=== PATIENT | male | born 1935 | race Caucasian/White ===

== ENCOUNTER 2016-03-10 07:15 | Outpatient (CLI) | payer MEDICARE, OTHER | END 2016-03-10 07:16 | disposition home or self-care (01) | DX: M35.3 Polymyalgia rheumatica (principal) ==

== ENCOUNTER 2016-06-16 17:13 | Outpatient (CLI) | payer MEDICARE, OTHER | END 2016-06-16 17:14 | disposition home or self-care (01) | DX: I10 Essential (primary) hypertension (principal); E78.5 Hyperlipidemia, unspecified; M35.3 Polymyalgia rheumatica ==

== ENCOUNTER 2016-08-18 10:38 | Outpatient (CLI) | payer MEDICARE, OTHER | END 2016-08-18 10:39 | disposition home or self-care (01) | LOC: LAB.WCP 10:38 | PROVIDERS: ATTEND Family Medicine | DX: M35.3 Polymyalgia rheumatica (principal) | CPT/HCPCS: 36415; 85651; 86140 ==

== ENCOUNTER 2016-09-11 07:20 | Outpatient (CLI) | payer MEDICARE, OTHER | END 2016-09-11 07:21 | disposition home or self-care (01) | LOC: LAB.WCP 07:20 | PROVIDERS: ATTEND Family Medicine | DX: M35.3 Polymyalgia rheumatica (principal) | CPT/HCPCS: 36415; 85651; 86140 ==

== ENCOUNTER 2016-10-12 07:44 | Outpatient (CLI) | payer MEDICARE, OTHER | END 2016-10-12 07:45 | LOC: LAB.WCP 07:44 | PROVIDERS: ATTEND Family Medicine | DX: M35.3 Polymyalgia rheumatica (principal) | CPT/HCPCS: 36415; 85651; 86140 ==

== ENCOUNTER 2016-12-08 13:18 | Outpatient (CLI) | payer MEDICARE, OTHER | END 2016-12-08 13:19 | disposition home or self-care (01) | LOC: SC 13:18 | PROVIDERS: ATTEND Nurse Practitioner Family | DX: G47.33 Obstructive sleep apnea (adult) (pediatric) (principal) | CPT/HCPCS: 99214; G0463; 99212 ==

== ENCOUNTER 2016-12-14 07:25 | Outpatient (CLI) | payer MEDICARE, OTHER | END 2016-12-14 07:26 | LOC: LAB.WCP 07:25 | PROVIDERS: ATTEND Family Medicine | DX: M35.3 Polymyalgia rheumatica (principal) | CPT/HCPCS: 36415; 85651; 86140 ==

== ENCOUNTER 2017-09-22 08:00 | Outpatient (CLI) | payer MEDICARE, OTHER ==
[2017-09-22 12:44] LABS: BILIRUBIN,URINE NEGATIVE (NEGATIVE); GLUCOSE, URINE (UA) NEGATIVE (NEGATIVE); KETONES,URINE (UA) NEGATIVE (NEGATIVE); LEUKOCYTE ESTERASE, URINE NEGATIVE (NEGATIVE); NITRITE,URINE NEGATIVE (NEGATIVE); OCCULT BLOOD,URINE NEGATIVE (NEGATIVE); PROTEIN,URINE NEGATIVE (NEGATIVE); UROBILINOGEN,URINE 0.2 (NORMAL) E.U./dL (NORMAL)
[2017-09-22 13:09] LABS: ALBUMIN 3.8 g/dL (3.2-5.5); ALBUMIN/GLOBULIN RATIO 1.3 (1.0-2.2); ALKALINE PHOSPHATASE 33 IU/L (42-121); ALT ALANINE AMINOTRANSFERASE 19 IU/L (10-60); AST ASPARTATE AMINOTRANSFERASE 24 IU/L (10-42); BILIRUBIN,TOTAL 0.9 mg/dL (0.2-1.0); BUN - BLOOD UREA NITROGEN 26 mg/dL (6-20); CALCIUM 9.4 mg/dL (8.5-10.3); CARBON DIOXIDE - CO2 27 mmol/L (21-32); CHLORIDE 103 mmol/L (101-111); CHOL/HDL RATIO 6.2 (<5.0); CHOLESTEROL 206 mg/dL; CREATININE 1.6 mg/dL (0.6-1.2); GFR - MDRD 41 (>89); GLUCOSE 96 mg/dL (70-100); HDL CHOLESTEROL 33 mg/dL; LDL CHOLESTEROL,CALCULATED 100 mg/dL; SODIUM 137 mmol/L (135-145); TOTAL PROTEIN 6.7 g/dL (6.7-8.2); VLDL CHOLESTEROL 73 mg/dL
[2017-09-22 13:10] LABS: BACTERIA,URINE Few /HPF (None Seen); CLARITY,URINE CLEAR (CLEAR); RBC,URINE 0-5 /HPF (0-5); SQUAMOUS EPITHELIAL CELL,UR MOD Squamous (<= Few)
[2017-09-22 13:12] LABS: CRP - C-REACTIVE PROTEIN < 1.0 mg/dL (0-1.0); PSA FREE 0.09 ng/mL (0.16-2.81)
[2017-09-22 13:13] LABS: PSA TOTAL 0.549 ng/mL (0.000-2.000)
== END 2017-09-22 08:01 ==
LOC: LAB.WCP 08:00
PROVIDERS: ATTEND Family Medicine
DX: N18.9 Chronic kidney disease, unspecified (principal); M35.3 Polymyalgia rheumatica; I10 Essential (primary) hypertension; E78.5 Hyperlipidemia, unspecified; R97.20 Elevated prostate specific antigen [PSA]
CPT/HCPCS: 36415; 80053; 80061; 81001; 83721; 84154; 85651; 86140

== ENCOUNTER 2017-12-13 13:38 | Outpatient (CLI) | payer MEDICARE, OTHER | END 2017-12-13 13:39 | disposition home or self-care (01) | LOC: SC 13:38 | PROVIDERS: ATTEND Nurse Practitioner Family | DX: G47.33 Obstructive sleep apnea (adult) (pediatric) (principal) | CPT/HCPCS: 99214; G0463; 99212 ==

== ENCOUNTER 2017-12-16 08:38 | Outpatient (CLI) | payer MEDICARE, OTHER ==
--- NOTE | 2017-12-16 10:03 | XRAY Report ---
Reason: SPONDYLOSIS W/O MYELOPATHY OR RADICULOPATHY Procedure Date: 12/16/2017 Accession Number: [id number] / [id number] Procedure: XR - Lumbar Spine Complete CPT Code: FULL RESULT: EXAM: LUMBOSACRAL SPINE RADIOGRAPHY EXAM DATE: 12/16/2017 08:55 AM. CLINICAL HISTORY: SPONDYLOSIS W/O MYELOPATHY OR RADICULOPATHY. COMPARISONS: None. TECHNIQUE: 5 views. FINDINGS: Alignment: There is grade 1 anterolisthesis of L5 upon S1 Bones: Five [id number] lumbar vertebral bodies are present. No fractures or bone lesions. No evidence of pars defects. Disks: There is mild narrowing of the L3-L4 disk space. There is moderate narrowing of the L4-L5 and L5-S1 disk spaces. There are moderate anterior osteophytes. Facets: Mild degenerative changes. Sacroiliac Joints: Unremarkable. Soft Tissues: Vascular calcifications are noted. The visualized bowel gas pattern is normal. IMPRESSION: Moderate lumbar spondylosis. Grade 1 anterolisthesis of L5 upon S1. RADIA
== END 2017-12-16 08:39 | disposition home or self-care (01) ==
LOC: DI 08:38
PROVIDERS: ATTEND Physical Medicine & Rehabilitation
DX: M47.816 Spondylosis without myelopathy or radiculopathy, lumbar region (principal); M47.817 Spondylosis without myelopathy or radiculopathy, lumbosacral region; M43.17 Spondylolisthesis, lumbosacral region
CPT/HCPCS: 72110

== ENCOUNTER 2018-08-15 07:50 | Outpatient (CLI) | payer MEDICARE, OTHER ==
[2018-08-15 12:11] LABS: BASOPHILS # (AUTO) 0.1 10^3/uL (0.0-0.1); BASOPHILS % (AUTO) 0.7 %; EOSINOPHILS # (AUTO) 0.2 10^3/uL (0.0-0.7); HGB - HEMOGLOBIN 12.8 g/dL (14.0-18.0); LYMPHOCYTES # (AUTO) 1.3 10^3/uL (1.5-3.5); LYMPHOCYTES % (AUTO) 14.5 %; MEAN CORPUSCULAR HEMOGLOBIN 28.5 pg (27.0-31.0); MEAN CORPUSCULAR HGB CONC 31.9 g/dL (32.0-36.0); MEAN CORPUSCULAR VOLUME 89.3 fL (80.0-94.0); MEAN PLATELET VOLUME 10.6 fL (7.4-11.4); MONOCYTES # (AUTO) 0.8 10^3/uL (0.0-1.0); MONOCYTES % (AUTO) 8.7 %; NEUTROPHILS # (AUTO) 6.6 10^3/uL (1.5-6.6); NEUTROPHILS % (AUTO) 73.8 %; PLT - PLATELET COUNT 234 10^3/uL (130-450); RED BLOOD COUNT 4.49 10^6/uL (4.70-6.10); RED CELL DISTRIBUTION WIDTH 13.8 % (12.0-15.0)
[2018-08-15 13:00] LABS: ALBUMIN 4.1 g/dL (3.2-5.5); ALBUMIN/GLOBULIN RATIO 1.5 (1.0-2.2); ALKALINE PHOSPHATASE 36 IU/L (42-121); ALT ALANINE AMINOTRANSFERASE 19 IU/L (10-60); AST ASPARTATE AMINOTRANSFERASE 23 IU/L (10-42); BILIRUBIN,TOTAL 0.8 mg/dL (0.2-1.0); BUN - BLOOD UREA NITROGEN 23 mg/dL (6-20); CALCIUM 9.6 mg/dL (8.5-10.3); CARBON DIOXIDE - CO2 24 mmol/L (21-32); CHLORIDE 104 mmol/L (101-111); CHOL/HDL RATIO 5.6 (<5.0); CHOLESTEROL 186 mg/dL; CREATININE 1.3 mg/dL (0.6-1.2); GFR - MDRD 52 (>89); GLUCOSE 104 mg/dL (70-100); HDL CHOLESTEROL 33 mg/dL; LDL CHOLESTEROL,CALCULATED 80 mg/dL; LDL/HDL RATIO 2.4 (<3.6); SODIUM 138 mmol/L (135-145); TOTAL PROTEIN 6.9 g/dL (6.7-8.2); VLDL CHOLESTEROL 73 mg/dL
== END 2018-08-15 07:51 | disposition home or self-care (01) ==
LOC: LAB.WCP 07:50
PROVIDERS: ATTEND Family Medicine
DX: I10 Essential (primary) hypertension (principal); E78.5 Hyperlipidemia, unspecified
CPT/HCPCS: 36415; 80053; 80061; 83721; 85025

== ENCOUNTER 2018-12-21 13:43 | Outpatient (CLI) | payer MEDICARE, OTHER ==
[2018-12-21 15:02] VITALS: BP 170/70
--- NOTE | 2018-12-21 15:02 | SLEEP CARE CONSULTATION ---
Information from patient questionnaire entered by Sharlene Saenz. I have reviewed and concur with the information entered by Sharlene Saenz. This document represents the service I personally performed and the decisions made by me, Carmen Aguirre, RN, MSN, MARKER [employer]KER. History of Present Illness Previous diagnosis: Moderate, Obstructive Sleep Apnea-Hypopnea Syndrome AHI: 20.7 Reason for CPAP/BiPAP follow up: annual Equipment type: CPAP Equipment obtained from: [employer] Mask style: Nasal Mask brand: Respironics Backup mask available: No (keep current mask when replaced for spare) Last cushion change: 2 weeks HPI additional information: Mask refitting was completed shortly after last annual visit but mask was no better and kept him awake so he returned to old mask. He is no longer taking off in sleep and no longer frustrated with the process. CPAP Compliance Data - Data Reviewed with Patient Average duration of nightly device use: 6.0 Compliance rate %: 87.8 (180 days) Current pressure setting (cmH2O): 10 Humidity settin Heated hose settin Average residual AHI: 1.8 Average large leak: 8 min 54 sec Subjective Missed days of use due to: reports: illness (cold) Patient concerns: reports: air blowing in eyes (1 time a week), mask leak noise (a few times a week), dry mouth, nose, throat (every day - moderate - nose and mouth ). denies: aerophagia, mask discomfort, condensation in mask/hose, nasal congestion, epistaxis Observed to snore while using device: Yes (mild) Current pressure setting perceived as: comfortable On therapy, patient: reports: sleeping better, awakening more refreshed, being more awake and alert during the day, more rested overall. denies: drowsiness while driving Initial [place] Sleepiness Scale score: 10 Current [place] Sleepiness Scale score: 9 Allergies and Home Medications Known drug allergies: Yes (sulfa, pencillin, doxycyline, ibuprogen etc as noted) Home medication list reviewed: Yes Allergy and home medication list: Cranberry 125mg tab take 4200mg daily Multivitamin Tab one daily Glucosamine Chondroitin Complex 1500mg cap one daily Tums EX 750mg chew 3-4 daily Tylenol Extra Strength 500mg tab 4-6 prn pain Tamsulosin HCL 0.4mg cap two daily Finasteride 5mg tab one daily at bedtime Aspirin EC 81mg tab one daily Prednisone 1 -5 mg tab one daily Lipitor (Atorvastatin Calcium) 10mg tab one daily at bedtime Plavix (Clopidogrel Bisulfate) 75mg tab one daily Losartan Potassium 50mg tab one daily Vitamin D3 2000IU tab one daily Vitamin C 1800IU tab one daily Calcium 600-Vit D3 600IU tab one daily Potassium 99mg tab one daily Stool softner 100mg cap one daily Benadryl 25mg tab one daily as needed Review of Systems Review of systems same as previous: Yes Physical Exam Blood Pressure: 170/70 (talking about spouses recent fall - usually 130-140/ 60) Heart Rate: 57 (repeat blood pressure is 160/68) O2 Saturation: 97 Height: 5 ft 9.5 in Weight: 174 lb Body Mass Index: 25.3 BMI Classification: Overweight Impression and Plan 1. Obstructive Sleep Apnea-Hypopnea Syndrome, moderate, with good treatment compliance and good apnea control. On CPAP therapy, the patient has better sleep quality and is more rested overall. His oral dryness is not controlled with maximum setting of his current CPAP. Thus since his CPAP is over 5 years old and has a better humidity system, I will update his CPAP. At that time, he can also update his mask headgear and mask hose attachment. I will also increase his CPAP pressure to [id number] to resolve snoring. He is to contact me if the pressure change is uncomfortable. Patient's apnea severity and rationale for treatment to reduce apnea, improve sleep quality and reduce cardiovascular and cerebrovascular events was reviewed. I also reviewed the benefit of consistent device use of CPAP for hypertension. 2. Elevated Blood Pressure, today at beginning and end of visit. It was initially thought to be elevated as he was talking about his spouses recent fall and progress. Patient monitors at home randomly and generally runs 130/140 / 60. He is advised to check again at home and contact his PCP if still elevated and agreed with plan. Review of his medications show he is still on losartan but his metoprolol was stopped for unknown reason. He is aware of health risks of too high of blood pressure. * Update CPAP * Change CPAP pressure to 11 cmH2O * Update mask hardware and hose attachment. * Notify me if snoring with mask or feeling that the pressure is too much or too little * Contact PCP if blood pressure still elevated. * Return for follow up after new device , or sooner if concerns arise * I called patient at end of day 1814 to check his blood pressure reading. He had not taken it yet. He is advised to take after resting 5-10 minutes. I advised him to seek urgent evaluation if systolic 180 or above or diastolic 100 or above and again reviewed risks heart attack and stroke with untreated high blood pressure. He agreed with plan. I spent 100% of this 35 minute visit face to face with the patient with greater than 50% of this was spent time counseling the patient and coordination of care.
== END 2018-12-21 13:44 | disposition home or self-care (01) ==
LOC: SC 13:43
PROVIDERS: ATTEND Nurse Practitioner Family
DX: G47.33 Obstructive sleep apnea (adult) (pediatric) (principal); R03.0 Elevated blood-pressure reading, without diagnosis of hypertension
CPT/HCPCS: 99212; 99214

== ENCOUNTER 2019-03-20 08:50 | Outpatient (CLI) | payer MEDICARE, OTHER ==
[2019-03-20 12:09] LABS: BASOPHILS # (AUTO) 0.1 10^3/uL (0.0-0.1); EOSINOPHILS # (AUTO) 0.1 10^3/uL (0.0-0.7); EOSINOPHILS % (AUTO) 1.5 %; HGB - HEMOGLOBIN 12.7 g/dL (14.0-18.0); LYMPHOCYTES # (AUTO) 1.2 10^3/uL (1.5-3.5); LYMPHOCYTES % (AUTO) 14.8 %; MEAN CORPUSCULAR HEMOGLOBIN 27.8 pg (27.0-31.0); MEAN CORPUSCULAR HGB CONC 31.1 g/dL (32.0-36.0); MEAN CORPUSCULAR VOLUME 89.5 fL (80.0-94.0); MEAN PLATELET VOLUME 11.1 fL (7.4-11.4); MONOCYTES # (AUTO) 0.5 10^3/uL (0.0-1.0); MONOCYTES % (AUTO) 6.9 %; NEUTROPHILS # (AUTO) 5.9 10^3/uL (1.5-6.6); NEUTROPHILS % (AUTO) 75.4 %; PLT - PLATELET COUNT 224 10^3/uL (130-450); RED BLOOD COUNT 4.57 10^6/uL (4.70-6.10); RED CELL DISTRIBUTION WIDTH 13.8 % (12.0-15.0); WHITE BLOOD COUNT 7.8 x10^3/uL (4.8-10.8)
[2019-03-20 12:32] LABS: PSA FREE 0.12 ng/mL (0.16-2.81)
[2019-03-20 12:33] LABS: PSA TOTAL 0.73 ng/mL (0.000-2.000)
[2019-03-20 13:06] LABS: ALBUMIN 3.9 g/dL (3.2-5.5); ALBUMIN/GLOBULIN RATIO 1.5 (1.0-2.2); ALKALINE PHOSPHATASE 32 IU/L (42-121); ALT ALANINE AMINOTRANSFERASE 19 IU/L (10-60); AST ASPARTATE AMINOTRANSFERASE 24 IU/L (10-42); BILIRUBIN,TOTAL 0.5 mg/dL (0.2-1.0); BUN - BLOOD UREA NITROGEN 23 mg/dL (6-20); CALCIUM 9.3 mg/dL (8.5-10.3); CARBON DIOXIDE - CO2 28 mmol/L (21-32); CHLORIDE 103 mmol/L (101-111); CHOL/HDL RATIO 5.7 (<5.0); CHOLESTEROL 195 mg/dL; CREATININE 1.4 mg/dL (0.6-1.2); GFR - MDRD 48 (>89); GLUCOSE 101 mg/dL (70-100); HDL CHOLESTEROL 34 mg/dL; SODIUM 139 mmol/L (135-145); TOTAL PROTEIN 6.5 g/dL (6.7-8.2)
[2019-03-20 13:33] LABS: LDL CHOLESTEROL,DIRECT 99 mg/dL; LDLD/HDL RATIO 2.9 (<3.6)
== END 2019-03-20 23:59 | disposition home or self-care (01) ==
LOC: LAB.WCP 08:50
PROVIDERS: ATTEND Nurse Practitioner Family
DX: I10 Essential (primary) hypertension (principal); R97.20 Elevated prostate specific antigen [PSA]; E78.5 Hyperlipidemia, unspecified; Z13.29 Encounter for screening for other suspected endocrine disorder
CPT/HCPCS: 36415; 80053; 80061; 83721; 84153; 84154; 84443; 85025

== ENCOUNTER 2019-04-06 12:48 | Outpatient (CLI) | payer MEDICARE, OTHER ==
--- NOTE | 2019-04-06 13:43 | SLEEP CARE CONSULTATION ---
Information from patient questionnaire entered by Sharlene Saenz. I have reviewed and concur with the information entered by Sharlene Saenz. This document represents the service I personally performed and the decisions made by me, Carmen Aguirre, RN, MSN, HOUSE WRECKER. History of Present Illness Previous diagnosis: Moderate, Obstructive Sleep Apnea-Hypopnea Syndrome AHI: 20.7 Reason for follow up: first compliance after device update Equipment type: CPAP Equipment obtained from: [employer] Mask style: Nasal (Air Fit N20) Mask brand: Resmed Backup mask available: Yes Last cushion change: no new cushions CPAP Compliance Data - Data Reviewed with Patient Average duration of nightly device use: 2.7 Compliance rate %: 6.7 (14.8 for 81 days) Current pressure setting (cmH2O): 11 Humidity settin Heated hose settin Average residual AHI: 8.1 Average large leak: 44 sec Subjective Patient concerns: reports: mask discomfort (does not feel like it fits correctly - ), air blowing in eyes (he has to adjust mask at least 3- 4 times a night ), mask leak noise, nasal congestion (mild ), dry mouth, nose, throat. denies: aerophagia, condensation in mask/hose, epistaxis Observed to snore while using device: Yes Current pressure setting perceived as: too high (initially the pressure seems too high, does not use ramp, but also wake to too high of pressure nightly) On therapy, patient: reports: other (currently not rested with use as waking to adjust mask and feels more tired during the dya. ) Initial [place] Sleepiness Scale score: 10 Current [place] Sleepiness Scale score: 8 Allergies and Home Medications Known drug allergies: Yes Home medication list reviewed: Yes (no changes) Review of Systems Review of systems same as previous: No Physical Exam Blood Pressure: 140/70 Heart Rate: 53 O2 Saturation: 98 Height: 5 ft 9.5 in Weight: 176 lb Weight change since last visit: gained 2 pounds Body Mass Index: 25.6 BMI Classification: Overweight Impression and Plan 1. Obstructive Sleep Apnea-Hypopnea Syndrome, moderate, with poor treatment compliance and elevated residual apnea control. On CPAP therapy, the patient has better sleep quality and is more rested overall. His compliance data seems incorrect due to his large mask leak. It is leaking so much, the machine is thinking the mask is off his face. He reports that he is using CPAP about 6 hours a night as shown on compliance usage but the black wynn showing mask off face make it appear he is using CPAP less time. HIs current mask is waking him 3-4 times a night. His spouse he is opening his mouth during supine sleep and he is waking with dry mouth somewhat dry. Since he is having so much difficulty with mask, I showed him some samples both full face ( due to oral venting in supine position) and nasal styles. After some discussion, he chose the nasal Dreamwear mask and thought it felt more comfortable than current mask. He is also feeling that the pressure is too high. It was increased at last visit due to snore. Thus I will reduce the autoCPAP pressure ot [id number]. He is to contact me if the pressure change does not improve comfort of use. It is hoped a better fitting mask and lower pressure will improve his comfort of use and oral dryness as well as improve complaince data with less mask leaks. I also showed him how to adjust the humidity for his oral dryness on sample device. Printed instructions given. Patient's apnea severity and rationale for treatment to reduce apnea, improve sleep quality and reduce cardiovascular and cerebrovascular events was reviewed. I also reviewed the benefit of consistent device use of his CPAP use to his hypertension. * * Change CPAP pressure to 8-10 cmH2O * Try Dreamwear nasal mask. * Adjust humidity. * Notify me if snoring with mask or feeling that the pressure is too much or too little * Attempt to lose weight * Call this office if any problems using CPAP * Return for follow up in 1-2 months , or sooner if concerns arise Time Spent with Patient (minutes): 40 I spent 100% of this visit face to face with the patient with greater than 50% of this was spent time counseling the patient and coordination of care.
[2019-04-06 13:44] VITALS: BP 140/70
== END 2019-04-06 12:49 | disposition home or self-care (01) ==
LOC: SC 12:48
PROVIDERS: ATTEND Nurse Practitioner Family
DX: G47.33 Obstructive sleep apnea (adult) (pediatric) (principal); E66.3 Overweight; Z68.25 Body mass index [BMI] 25.0-25.9, adult
CPT/HCPCS: 99215; G0463; 99212

== ENCOUNTER 2019-08-03 08:52 | Outpatient (CLI) | payer MEDICARE, OTHER ==
[2019-08-03 09:36] VITALS: BP 134/70
--- NOTE | 2019-08-03 09:36 | SLEEP CARE CONSULTATION ---
Information from patient questionnaire entered by Sharlene Saenz. I have reviewed and concur with the information entered by Sharlene Saenz. This document represents the service I personally performed and the decisions made by me, Carmen Aguirre, RN, MSN, DIAMOND SIZER AND GRADER. History of Present Illness Service Date and Time: 08/03/2019 0852 Previous diagnosis: Moderate, Obstructive Sleep Apnea-Hypopnea Syndrome AHI: 20.7 (in 2013) Reason for follow up: other (6 week) Equipment type: CPAP Equipment obtained from: [employer] Mask style: Nasal Mask brand: Resmed Backup mask available: No (other styles ) Last cushion change: at last appointment - sample given Prior sleep studies: Yes Year and Where: 2013 - [facility] Type of Sleep Study: Polysomnography HPI additional information: He tried a new style of mask. He likes the new style Dreamwear medium cushion. He finds it leaking less and works better. The lower pressure has allowed him to use CPAP with all sleep and reduce residual AHI. CPAP Compliance Data - Data Reviewed with Patient Average duration of nightly device use: 5.95 Compliance rate %: 93.3 Current pressure setting (cmH2O): 8-10 Humidity settin Heated hose settin Average residual AHI: 5.3 Average large leak: 3 hr 49 min 21 sec Subjective Missed days of use due to: reports: other (sleeping less due to spouse restless legs in sleep. but usual needs is 6 - 6.6 hours. ) Patient concerns: reports: air blowing in eyes (much less - no eye irritation ), mask leak noise (wakes to mask leaks and ), nasal congestion (chronic intermittent - not interferriing with CPAP. ), dry mouth, nose, throat (mild every night ), other (taking nap for about 45 minutes without CPAP). denies: aerophagia, mask discomfort, condensation in mask/hose, epistaxis Observed to snore while using device: Yes (rare and reduced mask adjustment or mouth open) Current pressure setting perceived as: comfortable On therapy, patient: reports: sleeping better, awakening more refreshed, being more awake and alert during the day, more rested overall. denies: drowsiness while driving Initial [place] Sleepiness Scale score: 10 (in 2012) Current [place] Sleepiness Scale score: 9 Allergies and Home Medications Home medication list reviewed: No (no changes stated) Review of Systems Review of systems same as previous: Yes Physical Exam Blood Pressure: 134/70 Cuff size: long Heart Rate: 51 O2 Saturation: 97 Height: 5 ft 9.5 in Weight: 173 lb 3.2 oz Body Mass Index: 25.2 BMI Classification: Overweight Impression and Plan 1. Obstructive Sleep Apnea-Hypopnea Syndrome, moderate, with good treatment compliance and good apnea control. On CPAP therapy, the patient has better sleep quality and is more rested overall. Patients compliance increased from 6.7% to 93.3%. He feels this is due to more comfortable pressure and better mask fit. In addition the lower pressure reduced residual AHI from 8.1 to 5.3. Thus I will write mask specific order. For oral dryness, his humidity is at lowest setting of 1 and heated hose at 2. So I will have my staff instruct how to increase humidity and give instruction sheet. The higher humidity will also reduce nasal congestion. He can use saline nasal spray prior to CPAP to clear nose of secretions and wash off allergens. He sees Dr Wilson regularly. Oral dryness can increase dental caries. Thus he is advised of oral dryness products and to check with his dentist preference of products. Mask leaks can be reduced with changing mask cushion more often in addition to his mask adjustment. If continued mask leaks, he is to contact [facility] from [facility] for further adjustment. I will also order a chinstrap fitting. Patient's apnea severity and rationale for treatment to reduce apnea, improve sleep quality and reduce cardiovascular and cerebrovascular events was reviewed. Thus he is advised to use CPAP with his naps and he agreed with plan. I also reviewed the benefit of consistent device use of CPAP for hypertension. * Continue auto CPAP pressure at 8-10 cmH2O * Mask specific RX * Contact [facility] if continued mask leaks * Chinstrap fitting * Adjust humidity * Notify me if snoring with mask or feeling that the pressure is too much or too little * Attempt to lose weight * Call this office if any problems using CPAP * Return for follow up in 1 year , or sooner if concerns arise Visit Type: In Office Time Spent with Patient (minutes): 33 Provider Statement: I spent 100% of the Face to Face Visit with the patient with greater than 50% spent counseling the patient and coordination of care.
== END 2019-08-03 08:53 | disposition home or self-care (01) ==
LOC: SC 08:52
PROVIDERS: ATTEND Nurse Practitioner Family
DX: G47.33 Obstructive sleep apnea (adult) (pediatric) (principal); E66.3 Overweight; Z68.25 Body mass index [BMI] 25.0-25.9, adult
CPT/HCPCS: 99214; G0463; 99212

== ENCOUNTER 2019-08-22 10:33 | Outpatient (CLI) | payer MEDICARE, OTHER ==
--- NOTE | 2019-08-22 11:56 | CT Report ---
PROCEDURE: Sinuses INDICATIONS: OTHER CHRONIC SINUSITIS TECHNIQUE: Noncontrast 3.0 mm axial images acquired from the frontal sinuses to the mid-sella, with coronal and sagittal reformats. For radiation dose reduction, the following was used: automated exposure control , adjustment of mA and/or kV according to patient size. COMPARISON: None. FINDINGS: Image quality: Excellent. Maxillary Sinuses: There is severe mucoperiosteal thickening involving the bilateral maxillary sinuse s. Moderate mucosal thickening within the bilateral maxillary sinuses. Ethmoid Air Cells: No bony remodeling or destruction. Sinuses are clear. Sphenoid Sinuses: No bony remodeling or destruction. Moderate left sphenoid sinus mucosal thickening . Frontal Sinuses: No bony remodeling or destruction. Sinuses are clear. Ostiomeatal Complexes: There is bilateral antrectomy. Bilateral antrectomies middle turbinates have b een resected. Are partially opacified. No José cells. Miscellaneous: Visualized intra-orbital contents are normal. No larry bullosa. No nasal septal de viation. IMPRESSION: 1. Postsurgical sequelae. 2. 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 3. Partial opacification of the bilateral antrectomies. Reviewed by: Ting Garcia MD on 08/22/2019 11:54 AM PDT Approved by: Ting Garcia MD on 08/22/2019 11:54 AM PDT Station ID: [id number]
== END 2019-08-22 10:34 | disposition home or self-care (01) ==
LOC: DI 10:33
PROVIDERS: ATTEND Otolaryngology
DX: J34.9 Unspecified disorder of nose and nasal sinuses (principal); R43.0 Anosmia; Z98.890 Other specified postprocedural states
CPT/HCPCS: 70486

== ENCOUNTER 2019-09-20 14:36 | Outpatient (CLI) | payer MEDICARE, OTHER ==
[2019-09-20] MEDS ORDERED: IOVERSOL 320 100 ML VIAL IVP ONE ×2 (14:47→15:12)
--- NOTE | 2019-09-20 15:37 | CT Report ---
PROCEDURE: SOFT TISSUE NECK W INDICATIONS: NECK MASS CONTRAST: IV CONTRAST: Optiray 320 ml: 80 PO CONTRAST: *NO PO CONTRAST TECHNIQUE: After the administration of intravenous contrast, 3.0 mm axial sections acquired from the sella to th e aortic arch. Additional oblique axial 3.0 mm sections acquired through the pharynx. 3 mm thick co bryan reformats were generated. For radiation dose reduction, the following was used: automated exp osure control, adjustment of mA and/or kV according to patient size. COMPARISON: None. FINDINGS: Image quality: Excellent. Lymph nodes: No enlarged lymph nodes seen throughout the neck. Vessels: Visualized vasculature appears patent. Neck spaces: The oropharynx, nasopharynx, and pharynx demonstrate no mucosal lesions. The vocal cor ds, false vocal cords, pyriform sinuses, epiglottis, vallecula, and tongue base all appear normal. E xtramucosal spaces appear unremarkable. ACT surface marker was placed above the medial right clavicu lar head area attached to the skin surface to denote the area of current clinical concern. There is a symmetric degenerative change at the medial clavicular heads bilaterally, greater on the right than t he left, but no underlying cutaneous or subcutaneous mass or adenopathy is associated. Glands: The parotid and submandibular glands appear normal. The thyroid is normal in size. Miscellaneous: Visualized brain and orbits appear normal. Lung apices appear clear. Superficial so ft tissues appear normal. Bones: No suspicious bony lesions. Visualized sinuses and mastoids appear unremarkable. IMPRESSION: No mass lesion seen in the area of current clinical concern demarcated by a CT surface marker placed with patient assistance over the area of current concern. 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 This may explai n palpable asymmetry in that area. Reviewed by: Wilman Schultz MD on 09/20/2019 3:35 PM PDT Approved by: Wilman Schultz MD on 09/20/2019 3:35 PM PDT Station ID: [id number]
== END 2019-09-20 14:37 | disposition home or self-care (01) ==
LOC: DI 14:36
PROVIDERS: ATTEND Family Medicine
DX: M19.011 Primary osteoarthritis, right shoulder (principal)
CPT/HCPCS: 70491; Q9967

== ENCOUNTER 2020-07-03 09:38 | Outpatient (CLI) | payer MEDICARE, OTHER ==
--- NOTE | 2020-07-03 10:34 | XRAY Report ---
PROCEDURE: Humerus LT INDICATIONS: INJURY OF MUSCLE, FASCIA AND TENDON OF BICEPS, L ARM TECHNIQUE: 2 views of the humerus were acquired. COMPARISON: None. FINDINGS: Bones: No fractures or dislocations. No suspicious bony lesions. Soft tissues: No suspicious soft tissue calcifications. IMPRESSION: No fracture. Further evaluation of the soft tissues could be assessed with MRI as clinically necessar y. Reviewed by: Freddy Alvarado MD on 07/03/2020 10:33 AM PDT Approved by: Freddy Alvarado MD on 07/03/2020 10:33 AM PDT Station ID: [id number]
== END 2020-07-03 23:59 | disposition home or self-care (01) ==
LOC: DI.N 09:38
PROVIDERS: ATTEND Nurse Practitioner
DX: S46.202A Unspecified injury of muscle, fascia and tendon of other parts of biceps, left arm, initial encounter (principal)

== ENCOUNTER 2020-07-30 08:32 | Outpatient (CLI) | payer MEDICARE, OTHER ==
--- NOTE | 2020-07-30 09:03 | SLEEP CARE CONSULTATION ---
Information from patient questionnaire entered by Sharlene Saenz. I have reviewed and concur with the information entered by Sharlene Saenz. This document represents the service I personally performed and the decisions made by , Hailey oBb ARNP. History of Present Illness Service Date and Time: 07/30/2020 0832 Previous diagnosis: Moderate, Obstructive Sleep Apnea-Hypopnea Syndrome AHI: 20.7 (in 2012) Reason for follow up: annual (last seen 07/2019) Equipment type: CPAP Equipment obtained from: [employer] (getting supplies as needed) Mask style: Nasal (cushion) Mask brand: Respironics Backup mask available: Yes (old mask) Last cushion change: last week Prior sleep studies: Yes Year and Where: 2013 - [facility] HPI additional information: CLEO SHARP was diagnosed to have moderate, AHI 20.7, obstructive sleep apnea-hypopnea syndrome and returned today for CPAP therapy annual follow-up. CPAP Compliance Data - Data Reviewed with Patient Average duration of nightly device use: 4 hr 25 min Compliance rate %: 60.6 (180 days) Current pressure setting (cmH2O): 8-10 Humidity settin Heated hose settin Average residual AHI: 5.5 Central apnea: 0.0 Obstructive apnea: 0.3 Average large leak: 2 hr 55 min Subjective Missed days of use due to: reports: family emergency ( in hospital in January), other (he is getting up earlier which shortens his use ) Patient concerns: reports: mask discomfort (adjusts), air blowing in eyes, mask leak noise (can wake him up). denies: aerophagia, condensation in mask/hose, nasal congestion, dry mouth, nose, throat, epistaxis, other Observed to snore while using device: No Current pressure setting perceived as: comfortable On therapy, patient: reports: sleeping better, awakening more refreshed, being more awake and alert during the day, more rested overall. denies: drowsiness while driving Initial [place] Sleepiness Scale score: 10 (in 2012) Current [place] Sleepiness Scale score: 7 Allergies and Home Medications Home medication list reviewed: Yes (no new meds) Review of Systems Review of systems same as previous: No (ruptured left upper arm tendon) Physical Exam Heart Rate: 58 O2 Saturation: 95 Height: 5 ft 9.5 in Weight: 172 lb Body Mass Index: 25.0 BMI Classification: Overweight Impression and Plan 1. Obstructive Sleep Apnea-Hypopnea Syndrome, moderate, with fair treatment compliance and fair apnea control with minimally elevated AHI. On CPAP therapy, the patient has better sleep quality and is more rested overall. Patient has significant improvement of his sleep apnea. He is very satisfied with his CPAP therapy. He has missed some days of use back in January because his was in the hospital. Since May he has altered how he is been sleeping and has been getting up earlier so at the time has reduced a little. He states he will continue to use his CPAP long-term. He has also had some issues with mask leakage and air blowing in his eyes. He just adjust his mask to reduce this goes back to sleep. I advised him to make sure he uses it every night for at least 4 to 6 hours and he voiced understanding. Patient's apnea severity and rationale for treatment to reduce apnea, improve sleep quality and reduce cardiovascular and cerebrovascular events was reviewed. I also reviewed the benefit of consistent device use of CPAP for hypertension. * Continue auto CPAP pressure at 8-10 cmH2O * Notify me if snoring with mask or feeling that the pressure is too much or too little * Attempt to lose weight * Call this office if any problems using CPAP * Return for follow up in 1 year, or sooner if concerns arise Counseling Topics: Spare mask, Weight loss health impact Visit Type: In Office Time Spent with Patient (minutes): 21 Provider Statement: I spent 100% of the Face to Face Visit with the patient with greater than 50% spent counseling the patient and coordination of care.
== END 2020-07-30 08:33 | disposition home or self-care (01) ==
LOC: SC 08:32
PROVIDERS: ATTEND Nurse Practitioner Family
DX: G47.33 Obstructive sleep apnea (adult) (pediatric) (principal); E66.3 Overweight; Z68.25 Body mass index [BMI] 25.0-25.9, adult
CPT/HCPCS: 99213; G0463; 99212

== ENCOUNTER 2020-08-12 08:00 | Outpatient (CLI) | payer MEDICARE, OTHER ==
[2020-08-12 11:52] LABS: BASOPHILS # (AUTO) 0.1 10^3/uL (0.0-0.1); BASOPHILS % (AUTO) 0.5 %; EOSINOPHILS # (AUTO) 0.2 10^3/uL (0.0-0.7); HCT - HEMATOCRIT 40.7 % (42.0-52.0); HGB - HEMOGLOBIN 13.2 g/dL (14.0-18.0); LYMPHOCYTES # (AUTO) 1.3 10^3/uL (1.5-3.5); LYMPHOCYTES % (AUTO) 13.7 %; MEAN CORPUSCULAR HEMOGLOBIN 28.8 pg (27.0-31.0); MEAN CORPUSCULAR HGB CONC 32.4 g/dL (32.0-36.0); MEAN CORPUSCULAR VOLUME 88.9 fL (80.0-94.0); MEAN PLATELET VOLUME 10.8 fL (7.4-11.4); MONOCYTES # (AUTO) 0.7 10^3/uL (0.0-1.0); MONOCYTES % (AUTO) 7.2 %; NEUTROPHILS # (AUTO) 7.2 10^3/uL (1.5-6.6); NEUTROPHILS % (AUTO) 76.2 %; PLT - PLATELET COUNT 232 10^3/uL (130-450); RED BLOOD COUNT 4.58 10^6/uL (4.70-6.10); RED CELL DISTRIBUTION WIDTH 13.9 % (12.0-15.0); WHITE BLOOD COUNT 9.4 x10^3/uL (4.8-10.8)
[2020-08-12 12:13] LABS: ALBUMIN 4.3 g/dL (3.2-5.5); ALBUMIN/GLOBULIN RATIO 1.7 (1.0-2.2); ALKALINE PHOSPHATASE 38 IU/L (42-121); ALT ALANINE AMINOTRANSFERASE 20 IU/L (10-60); AST ASPARTATE AMINOTRANSFERASE 21 IU/L (10-42); BILIRUBIN,TOTAL 0.7 mg/dL (0.2-1.0); BUN - BLOOD UREA NITROGEN 28 mg/dL (6-20); CALCIUM 9.8 mg/dL (8.5-10.3); CARBON DIOXIDE - CO2 27 mmol/L (21-32); CHLORIDE 101 mmol/L (101-111); CHOL/HDL RATIO 5.6 (<5.0); CHOLESTEROL 219 mg/dL; CREATININE 1.5 mg/dL (0.6-1.2); GFR - MDRD 44 (>89); GLUCOSE 110 mg/dL (70-100); HDL CHOLESTEROL 39 mg/dL; LDL CHOLESTEROL,CALCULATED 113 mg/dL; LDL/HDL RATIO 2.9 (<3.6); POTASSIUM 4.7 mmol/L (3.5-5.0); SODIUM 139 mmol/L (135-145); TOTAL PROTEIN 6.9 g/dL (6.7-8.2); TRIGLYCERIDES 333 mg/dL; VLDL CHOLESTEROL 67 mg/dL
[2020-08-12 12:26] LABS: CRP - C-REACTIVE PROTEIN < 1.0 mg/dL (0-1.0)
== END 2020-08-12 23:59 | disposition home or self-care (01) ==
LOC: LAB.WCP 08:00
PROVIDERS: ATTEND Family Medicine
DX: E78.5 Hyperlipidemia, unspecified (principal); I10 Essential (primary) hypertension; M35.3 Polymyalgia rheumatica
CPT/HCPCS: 36415; 80053; 80061; 83721; 85025; 85651; 86140

== ENCOUNTER 2020-11-14 08:06 | Outpatient (CLI) | payer MEDICARE, OTHER ==
[2020-11-14 08:59] LABS: CREATININE 1.5 mg/dL (0.6-1.2)
[2020-11-14] MEDS ORDERED: GADOBUTROL 7.5 MMOL/7.5 ML VIAL ONE (09:11)
--- NOTE | 2020-11-14 12:01 | MRI Report ---
PROCEDURE: Brain W/WO INDICATIONS: ANOSMIA, AQEUSIA [sic] CONTRAST: IV CONTRAST: Gadavist ml: 7.5 TECHNIQUE: Noncontrast axial T1 spin echo, axial T2 fast spin echo, sagittal and axial FLAIR, coronal T2 fast sp in echo, axial gradient echo, axial diffusion and ADC through the brain. After the administration of contrast, axial and coronal T1 spin echo with fat saturation through the brain. COMPARISON: Correlation is made with the CT examination, 08/22/2019. Correlation is also made with re port only from brain MRI examinations, 08/13/2011 and 12/28/2011. FINDINGS: Image quality: Excellent. CSF spaces: Basal cisterns are patent. No extra-axial fluid collections. Ventricles are normal in size and shape. Brain: No midline shift. No intracranial bleeds or masses. No abnormal intracranial enhancement. There is cerebral volume loss for age. There is periventricular white matter chronic small vessel is chemic change. The brainstem appears normal. Diffusion-weighted images demonstrate no acute ischemi c insults. No chronic ischemic insults. Normal intravascular flow voids are present. Prominent per ivascular spaces are incidentally noted. Skull and face: Calvarial marrow is normal in signal. Orbits appear normal. Incidental note is ma de of bilateral lens replacements. Sinuses: Widespread paranasal sinus disease is seen, with moderate mucosal thickening within the maxi llary sinuses, right worse than left. There is also moderate mucosal thickening within the left front al sinus. Mild to moderate mucosal thickening can be seen elsewhere within the paranasal sinuses. IMPRESSION: No imaging explanation is found for the patient's presenting symptoms. No masses or abnormal enhancement can be seen. Age-appropriate brain parenchymal volume loss and chronic small vessel ischemic change can be seen. No findings of acute or subacute infarction are seen. Reviewed by: Peter Tabor MD on 11/14/2020 11:00 AM [facility] Approved by: Peter Tabor MD on 11/14/2020 11:00 AM [facility]O Station ID: [id number]
[2020-11-14] MEDS ORDERED: GADOBUTROL 7.5 MMOL/7.5 ML VIAL IVP ONE (12:17)
== END 2020-11-14 08:07 | disposition home or self-care (01) ==
LOC: LAB 08:06
PROVIDERS: ATTEND Otolaryngology
DX: R43.0 Anosmia (principal); R43.2 Parageusia
CPT/HCPCS: 36415; 70553; 82565; A9585

== ENCOUNTER 2021-01-30 08:00 | Outpatient (CLI) | payer MEDICARE, OTHER ==
[2021-01-30 12:07] LABS: BASOPHILS # (AUTO) 0.1 10^3/uL (0.0-0.1); BASOPHILS % (AUTO) 0.9 %; EOSINOPHILS # (AUTO) 0.1 10^3/uL (0.0-0.7); EOSINOPHILS % (AUTO) 1.4 %; HCT - HEMATOCRIT 37.8 % (42.0-52.0); HGB - HEMOGLOBIN 11.8 g/dL (14.0-18.0); LYMPHOCYTES # (AUTO) 1.6 10^3/uL (1.5-3.5); LYMPHOCYTES % (AUTO) 17.5 %; MEAN CORPUSCULAR HEMOGLOBIN 27.6 pg (27.0-31.0); MEAN CORPUSCULAR HGB CONC 31.2 g/dL (32.0-36.0); MEAN CORPUSCULAR VOLUME 88.5 fL (80.0-94.0); MEAN PLATELET VOLUME 10.7 fL (7.4-11.4); MONOCYTES # (AUTO) 0.7 10^3/uL (0.0-1.0); MONOCYTES % (AUTO) 7.6 %; NEUTROPHILS # (AUTO) 6.6 10^3/uL (1.5-6.6); NEUTROPHILS % (AUTO) 72.2 %; PLT - PLATELET COUNT 274 10^3/uL (130-450); RED BLOOD COUNT 4.27 10^6/uL (4.70-6.10); RED CELL DISTRIBUTION WIDTH 14.4 % (12.0-15.0); WHITE BLOOD COUNT 9.1 x10^3/uL (4.8-10.8)
[2021-01-30 12:56] LABS: ALBUMIN 3.9 g/dL (3.2-5.5); ALBUMIN/GLOBULIN RATIO 1.4 (1.0-2.2); BILIRUBIN,TOTAL 1.2 mg/dL (0.2-1.0); CALCIUM 9.9 mg/dL (8.5-10.3); CREATININE 1.6 mg/dL (0.6-1.2); CRP - C-REACTIVE PROTEIN 1.2 mg/dL (0-1.0); POTASSIUM 4.6 mmol/L (3.5-5.0); TOTAL PROTEIN 6.6 g/dL (6.7-8.2)
== END 2021-01-30 23:59 ==
LOC: LAB.WCP 08:00
PROVIDERS: ATTEND Family Medicine
DX: N18.9 Chronic kidney disease, unspecified (principal); M35.3 Polymyalgia rheumatica
CPT/HCPCS: 36415; 80053; 85025; 85651; 86140

== ENCOUNTER 2021-02-26 08:43 | Outpatient (CLI) | payer MEDICARE, OTHER ==
[2021-02-26 09:32] VITALS: BP 131/83
--- NOTE | 2021-02-26 09:32 | SLEEP CARE CONSULTATION ---
Information from patient questionnaire entered by Austin Melissa MA. I have reviewed and concur with the information entered by Austin Melissa MA. This document represents the service I personally performed and the decisions made by , Hailey Bob ARNP. History of Present Illness Service Date and Time: 02/26/2021 0843 Previous diagnosis: Moderate, Obstructive Sleep Apnea-Hypopnea Syndrome AHI: 20.7 (in 2012) Reason for follow up: six month (6 month f/u CPAP ISSUES) Equipment type: CPAP Equipment obtained from: [employer] (getting supplies as needed) Mask style: Nasal (cushion) Backup mask available: Yes (older mask/different style) Last cushion change: yesterday [facility] H[facility] additional information: CLEO SHARP was diagnosed to have moderate, AHI 20.7, obstructive sleep apnea-hypopnea syndrome and returned today for CPAP therapy six month with CPAP issues follow-up. Sleep Study - Results Prior sleep studies: Yes [facility] Compliance Data - Data Reviewed with Patient Average duration of nightly device use: 2 HOURS 4 MINUTES Compliance rate %: 8.9 Current pressure setting (cmH2O): 8-10 Humidity settin Heated hose settin Average residual AHI: 8.2 Average large leak: 1 HOUR 23 MINUTES Subjective Missed days of use due to: reports: mask issues Patient concerns: reports: mask discomfort (doesn't feel right after wearing it a few hours), air blowing in eyes, mask leak noise (waking him up), condensation in mask/hose (nothing major, a little below the mask), dry mouth, nose, throat (almost every night). denies: aerophagia, nasal congestion, epistaxis, other Observed to snore while using device: No Current pressure setting perceived as: too high (HAVING TROUBLE KEEPING THE MASK ON DOESNT FEEL RIGHT) On therapy, patient: reports: awakening more refreshed, more rested overall, other (He feels like he is getting benefit but know he should use it more). denies: drowsiness while driving Initial [place] Sleepiness Scale score: 10 (in 2012) Current [place] Sleepiness Scale score: 7 (2021) Allergies and Home Medications Home medication list reviewed: Yes (no changes) Review of Systems Review of systems same as previous: Yes (no changes) Physical Exam Vital signs obtained and entered by: KENDRA ELIZALDE Blood Pressure: 131/83 (RIGHT) Heart Rate: 69 O2 Saturation: 97 (PAPER MASK) Height: 5 ft 9.5 in Weight: 159 lb Body Mass Index: 23.1 BMI Classification: Healthy weight Impression and Plan 1. Obstructive Sleep Apnea-Hypopnea Syndrome, moderate, with poor treatment compliance and fair apnea control with elevated residual AHI. Patient has had lots of issues with the pressure feeling too high. There is a lot of noise from leaks around his mask with some leakage into his eyes. He states this is so noisy he it is hard for him to stay sleeping. He gets a dry mouth almost nightly. He has high hypopneas and 1 hour 22 minutes average large leaks with just 2 hours average nightly use of the CPAP. His elevated AHI is probably due to the large mask leaks. I will adjust his pressure down to see if it will be more comfortable and he can tolerate the mask longer with less leakage. He states he really likes the new nasal cushion but he has been using, he feels it is more comfortable than the full face. I encouraged him to use a chinstrap, which he has at home, to keep his mouth closed which can help reduce dryness if he is mouth venting. He voiced understanding and agreement with plan. He was advised to let me know if the change in pressure is still uncomfortable for fu rther adjustment. I will have him follow up in 1-2 months. Patient's apnea severity and rationale for treatment to reduce apnea, improve sleep quality and reduce cardiovascular and cerebrovascular events was reviewed. I also reviewed the benefit of consistent device use of CPAP for hypertension. * Change auto CPAP pressure to 7.5-8.5 cmH2O * Notify me if snoring with mask or feeling that the pressure is too much or too little * Maintain a healthy weight * Call this office if any problems using CPAP * Return for follow up in 1-2 months, or sooner if concerns arise Counseling Topics: Spare mask, Weight control Visit Type: In Office Time Spent with Patient (minutes): 27 Provider Statement: I spent 100% of the Face to Face Visit with the patient with greater than 50% spent counseling the patient and coordination of care.
== END 2021-02-26 08:44 | disposition home or self-care (01) ==
LOC: SC 08:43
PROVIDERS: ATTEND Nurse Practitioner Family
DX: G47.33 Obstructive sleep apnea (adult) (pediatric) (principal)
CPT/HCPCS: 99213; G0463; 99212

== ENCOUNTER 2021-02-28 07:00 | Outpatient (CLI) | payer MEDICARE, OTHER ==
[2021-02-28 13:29] LABS: THYROID STIMULATING HORMONE 1.69 uIU/mL (0.34-5.60)
[2021-02-28 13:55] LABS: ESTIMATED AVERAGE GLUCOSE 126 mg/dL (70-100)
== END 2021-02-28 23:59 | disposition home or self-care (01) ==
LOC: LAB.WCP 07:00
PROVIDERS: ATTEND Family Medicine
DX: G62.9 Polyneuropathy, unspecified (principal); R73.01 Impaired fasting glucose; M35.3 Polymyalgia rheumatica
CPT/HCPCS: 36415; 82607; 83036; 84443; 85651; 86140

== ENCOUNTER 2021-04-09 10:12 | Outpatient (CLI) | payer MEDICARE, OTHER ==
[2021-04-09 13:07] LABS: CREATININE 1.5 mg/dL (0.6-1.2); CRP - C-REACTIVE PROTEIN 1.1 mg/dL (0-1.0)
== END 2021-04-09 10:13 | disposition home or self-care (01) ==
LOC: LAB.N 10:12
PROVIDERS: ATTEND Internal Medicine Rheumatology
DX: M35.3 Polymyalgia rheumatica (principal); N28.9 Disorder of kidney and ureter, unspecified
CPT/HCPCS: 36415; 82565; 84520; 85651; 86140

== ENCOUNTER 2021-04-09 10:25 | Outpatient (CLI) | payer MEDICARE, OTHER ==
--- NOTE | 2021-04-09 12:00 | XRAY Report ---
PROCEDURE: Lumbar Spine 2 View INDICATIONS: LUMBAR BACK PX TECHNIQUE: 3 views of the lumbar spine were acquired. COMPARISON: 12/16/2017. FINDINGS: Bones: 5 [id number] vertebrae are present. There is straightening of normal lumbar lordosis. D egenerative endplate changes and loss of disc height throughout lumbar spine is seen. Bilateral facet arthrosis in mid to lower lumbar spine is also noted. No vertebral body compression fractures. No s uspicious bony lesions. Soft tissues: Overlying bowel gas pattern is normal. No suspicious soft tissue calcifications. Ath erosclerotic calcifications throughout abdominal aorta is seen. IMPRESSION: Degenerative disc disease throughout lumbar spine more prominent at L3-4 and L4-5 levels . No acute compression fracture or spondylolisthesis. Reviewed by: Jeff Steven MD on 04/09/2021 11:59 AM PST Approved by: Jeff Steven MD on 04/09/2021 11:59 AM PST Station ID: [id number]
--- NOTE | 2021-04-09 12:48 | XRAY Report ---
PROCEDURE: Pelvis 1 View INDICATIONS: Pain TECHNIQUE: A single AP view of the pelvis was obtained COMPARISON: None. FINDINGS: Degenerative changes noted lower lumbar spine. Both sacroiliac joints are unremarkable. There is mild acetabular joint space narrowing noted bilaterally. Both femoral heads have an appropriate contour. No evidence of fracture or intrinsic osseous lesion. Obscuring vascular calcification noted. Several phleboliths are present in the pelvis. IMPRESSION: Mild degenerative acetabular joint space narrowing. No fracture or intrinsic osseous lesion. Reviewed by: Otis Espino MD on 04/09/2021 11:47 AM [facility] Approved by: Otis Espino MD on 04/09/2021 11:47 AM [facility] Station ID: [id number]
== END 2021-04-09 10:26 | disposition home or self-care (01) ==
LOC: DI.N 10:25
PROVIDERS: ATTEND Internal Medicine Rheumatology
DX: M47.816 Spondylosis without myelopathy or radiculopathy, lumbar region (principal); M51.36 Other intervertebral disc degeneration, lumbar region; M16.0 Bilateral primary osteoarthritis of hip; M35.3 Polymyalgia rheumatica; N28.9 Disorder of kidney and ureter, unspecified
CPT/HCPCS: 36415; 82565; 84520; 85651; 86140

== ENCOUNTER 2021-04-18 17:36 | Emergency (ER) | payer MEDICARE, OTHER ==
[2021-04-18 19:04] LABS: BASOPHILS # (AUTO) 0.1 10^3/uL (0.0-0.1); BASOPHILS % (AUTO) 0.9 %; EOSINOPHILS # (AUTO) 0.1 10^3/uL (0.0-0.7); EOSINOPHILS % (AUTO) 1.3 %; HGB - HEMOGLOBIN 11.7 g/dL (14.0-18.0); LYMPHOCYTES # (AUTO) 0.7 10^3/uL (1.5-3.5); LYMPHOCYTES % (AUTO) 7.6 %; MEAN CORPUSCULAR HEMOGLOBIN 28.8 pg (27.0-31.0); MEAN CORPUSCULAR HGB CONC 32.5 g/dL (32.0-36.0); MEAN CORPUSCULAR VOLUME 88.7 fL (80.0-94.0); MEAN PLATELET VOLUME 9.7 fL (7.4-11.4); MONOCYTES # (AUTO) 0.4 10^3/uL (0.0-1.0); MONOCYTES % (AUTO) 4.5 %; NEUTROPHILS % (AUTO) 84.8 %; PLT - PLATELET COUNT 238 10^3/uL (130-450); RED BLOOD COUNT 4.06 10^6/uL (4.70-6.10); RED CELL DISTRIBUTION WIDTH 15.6 % (12.0-15.0); WHITE BLOOD COUNT 9.5 x10^3/uL (4.8-10.8)
--- NOTE | 2021-04-18 19:17 | CT Report ---
PROCEDURE: HEAD WO INDICATIONS: "off balance" x 1 month TECHNIQUE: Noncontrast 4.5 mm thick angled axial sections acquired from the foramen magnum to the vertex. For r adiation dose reduction, the following was used: automated exposure control, adjustment of mA and/or kV according to patient size. COMPARISON: Reference is made to the MRI brain dated November 14, 2020. FINDINGS: BRAIN PARENCHYMA: White matter hypoattenuation, compatible with the sequela microvascular ischemia. N o acute cortical based (large territory) infarction, intracranial hemorrhage, mass or mass effect, or abnormal fluid collection. The density in the larger dural venous sinuses is grossly normal. VENTRICLES: Normal in size, shape, and position. BONES/SINUSES: The skull base and calvarium demonstrate no acute abnormality. Mucoperiosteal thickeni ng of the maxillary and sphenoid sinuses. The ethmoid air cells and mastoid air cells are well aerate d. IMPRESSION: 1.No acute intracranial abnormality. Reviewed by: Tariq Lopez MD on 04/18/2021 7:15 PM [facility] Approved by: Tariq Lopez MD on 04/18/2021 7:15 PM PST Station ID: [id number]
[2021-04-18 19:22] LABS: ALBUMIN 3.6 g/dL (3.2-5.5); ALBUMIN/GLOBULIN RATIO 1.6 (1.0-2.2); BILIRUBIN,TOTAL 0.5 mg/dL (0.2-1.0); CALCIUM 9.3 mg/dL (8.5-10.3); CREATININE 1.5 mg/dL (0.6-1.2); MAGNESIUM 2.2 mg/dL (1.7-2.8); PHOSPHORUS 3.6 mg/dL (2.5-4.6); POTASSIUM 4.3 mmol/L (3.5-5.0); TOTAL PROTEIN 5.8 g/dL (6.7-8.2)
--- NOTE | 2021-04-18 19:55 | ED Physician Documentation ---
History of Present Illness - Stated complaint Stated Complaint: HAND NUMBNESS,TROUBLE WALKING - Chief complaint Chief Complaint: General - History obtained from History obtained from: Patient - History of Present Illness Timing: How many weeks ago (several) Pain level max: 0 Pain level now: 0 - Additonal information Additional information: Patient is an 86-year-old male who presents to the emergency department complaining of tingling to the bilateral hands and feet. Occasional numbness. Sometimes feels off balance. This been ongoing for the past several weeks. Nothing makes it better or worse. He states that he has seen his doctor and does not appear to be having a flare of polymyalgia rheumatica. They are concerned about potential neuropathy. He has an appointment with his PCP on Wednesday. No falls. No trauma. No focal neurological deficits. Review of Systems Ten Systems: 10 systems reviewed and negative Constitutional: denies: Fever, Chills Throat: denies: Sore throat Cardiac: denies: Chest pain / pressure, Palpitations Respiratory: denies: Dyspnea, Cough GI: denies: Abdominal Pain, Nausea, Vomiting, Diarrhea : denies: Dysuria Skin: denies: Rash Musculoskeletal: denies: Neck pain, Back pain Neurologic: denies: Focal weakness, Confused, Headache PD PAST MEDICAL HISTORY - Past Medical History Cardiovascular: Hypertension, Arrhythmia Endocrine/Autoimmune: None GI: Colon polyps : Benign prostate hypertrophy, Retention, Frequency HEENT: Chronic sinusitis Psych: None Musculoskeletal: Osteoarthritis, Fibromyalgia, Other Derm: None - Past Surgical History General: Cholecystectomy, Colonoscopy Ortho: Knee replacement HEENT: Other - Present Medications Home Medications: Ambulatory Orders Medication Instructions Recorded Confirmed Ascorbic Acid [Vitamin C] 1,000 mg PO DAILY 03/01/13 05/02/14 Aspirin Chewable [St Manav 81 mg PO DAILY 03/01/13 05/01/14 Aspirin] Atorvastatin Calcium 10 mg ORAL DAILY 03/01/13 05/01/14 Calcium Carbonate/Vitamin D3 1 each PO DAILY 03/01/13 05/01/14 [Calcium 600 + D3 Softgel] Cholecalciferol (Vitamin D3) 2,000 unit PO DAILY 03/01/13 05/01/14 [Vitamin D3] Clopidogrel [Plavix] 75 mg PO DAILY 03/01/13 05/01/14 Cranberry Conc/Ascorbic Acid 1 each PO DAILY 03/01/13 05/01/14 [Cranberry 12,600 mg Softgel] Finasteride 5 mg ORAL DAILY 03/01/13 05/02/14 Gabapentin [Neurontin] 300 mg PO HS 03/01/13 05/01/14 Glucosa Engle 2Kcl/Chondroitin Engle 1 each PO DAILY 03/01/13 05/01/14 [Glucosamine & Chondroitin Cap] Lisinopril 10 mg ORAL DAILY 03/01/13 05/01/14 Metoprolol Succinate [Toprol Xl] 25 mg PO DAILY 03/01/13 05/02/14 Multivitamin [Multivitamins] 1 each PO DAILY 03/01/13 05/02/14 Potassium 99 mg PO DAILY 03/01/13 05/02/14 Tamsulosin [Flomax] 0.4 mg PO DAILY 03/01/13 05/02/14 Vitamin E 400 unit PO DAILY 03/01/13 05/02/14 predniSONE [Prednisone] 5 mg ORAL DAILY 05/01/14 05/02/14 Gabapentin [Neurontin] 300 mg PO TID #30 cap 04/18/21 - Allergies Allergies/Adverse Reactions: Allergies Allergy/AdvReac Type Severity Reaction Status Date / Time doxycycline AdvReac Rash Verified 05/01/14 13:10 ibuprofen AdvReac Rash Verified 05/01/14 13:10 Penicillins AdvReac Rash Verified 05/01/14 13:10 Sulfa (Sulfonamide AdvReac Rash Verified 05/01/14 13:10 Antibiotics) - Social History Smoking Status: Former smoker PD ED PE NORMAL - Vitals Vital signs reviewed: Yes - General General: Alert and oriented X 3, No acute distress - HEENT HEENT: Atraumatic, PERRL, Moist mucous membranes - Neck Neck: Supple, no meningeal sign - Cardiac Cardiac: RRR, Strong equal pulses - Respiratory Respiratory: No respiratory distress, Clear bilaterally - Abdomen Abdomen: Soft, Non tender, Non distended - Derm Derm: Warm and dry, No rash - Extremities Extremities: No edema - Neuro Neuro: Alert and oriented X 3, 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, No motor deficit, No sensory deficit Eye Opening: Spontaneous Motor: Obeys Commands Verbal: Oriented GCS Score: 15 - Psych Psych: Normal mood, Normal affect Results - Vitals Vitals: Vital Signs - 24 hr 04/18/21 04/18/21 04/18/21 17:42 17:47 20:05 Temperature 36.5 C 36.5 C Heart Rate 90 90 64 Respiratory 16 16 20 Rate Blood Pressure 167/74 H 167/74 H 138/72 H O2 Saturation 97 97 96 Oxygen O2 Source Room air - Labs Labs: Laboratory Tests 04/18/21 04/18/21 18:58 18:58 WBC 9.5 RBC 4.06 L Hgb 11.7 L Hct 36.0 L MCV 88.7 MCH 28.8 MCHC 32.5 RDW 15.6 H Plt Count 238 MPV 9.7 Neut # (Auto) 8.0 H Lymph # (Auto) 0.7 L Callahan # (Auto) 0.4 Eos # (Auto) 0.1 Baso # (Auto) 0.1 Absolute Nucleated RBC 0.00 Nucleated RBC % 0.0 Sodium 136 Potassium 4.3 Chloride 102 Carbon Dioxide 27 Anion Gap 7.0 BUN 33 H Creatinine 1.5 H Estimated GFR (MDRD) 44 L Glucose 155 H Calcium 9.3 Phosphorus 3.6 Magnesium 2.2 Total Bilirubin 0.5 AST 21 ALT 24 Alkaline Phosphatase 33 L Total Protein 5.8 L Albumin 3.6 Globulin 2.2 Albumin/Globulin Ratio 1.6 - Rads (name of study) head CT Radiology: Final report received, EMP read contemporaneously, See rad report (no acute abnormality) PD MEDICAL DECISION MAKING - ED course Complexity details: reviewed results, re-evaluated patient, considered differ ential, d/w patient ED course: No significant lab abnormalities or acute findings on head CT. Symptoms are bilateral in the hands and feet, likely neuropathy. He has been on gabapentin in the past which seemed to help, will place him back on gabapentin and have him follow-up with his doctor on Wednesday as scheduled. Patient is using a walker to help with balance. Patient counseled regarding signs and symptoms for which I believe and urgent re-evaluation would be necessary. Patient with good understanding of and agreement to plan and is comfortable going home at this time This document was made in part using voice recognition software. While efforts are made to proofread this document, sound alike and grammatical errors may occur. Departure - Departure Disposition: Home, Self Care Clinical Impression: Neuropathy, Muscle weakness Condition: Good Instructions: ED Neuropathy Peripheral, ED Weakness [facility] Follow-Up: Kaycee Keith DO [Primary Care Provider] - 04/22/21 Prescriptions: Gabapentin [Neurontin] 300 mg PO TID #30 cap Comments: It appears likely that your suffering from neuropathy. We will place you on gabapentin 300 mg by mouth 3 times a day. Your head CT does not show any acute abnormalities today. Your laboratory testing appears stable from your prior test. The cause of your weakness is unclear, but could be related to the neuropathy or could be secondary to something such as steroid-induced myopathy as you are on prednisone chronically at home. Please follow-up with your doctor on Wednesday for further care. You should use a walker or a cane at least to help you walk at home. The numbness in your feet can lead to feelings of off balance and increased risk of falling. Your prescriptions were sent to [facility] in [place]. Discharge Date/Time: 04/18/21 20:29
[2021-04-18 20:06] VITALS: BP 138/72
== END 2021-04-18 20:29 | disposition home or self-care (01) ==
LOC: ED 17:36
DX: G62.9 Polyneuropathy, unspecified (principal); M62.81 Muscle weakness (generalized); Z87.891 Personal history of nicotine dependence
CPT/HCPCS: 36415; 80053; 83735; 84100; 85025; 99284

== ENCOUNTER 2021-07-14 08:47 | Outpatient (CLI) | payer MEDICARE, OTHER ==
--- NOTE | 2021-07-14 17:16 | XRAY Report ---
PROCEDURE: Cervical Spine Complete INDICATIONS: CERVICAL SPINAL STENOSIS TECHNIQUE: 4 views of the cervical spine acquired. COMPARISON: None. FINDINGS: Bones: No fractures or dislocations to the vertebra level. Advanced cervical spondylitic change wit h impressive multilevel facet arthropathy. There is trace degenerative anterolisthesis of C2 on C3 wi th flexion which reduces on extension. It measures approximately 3 mm on flexion. Anterolisthesis of C3 on C4 measures 5 mm on flexion and 3 mm on extension. There is trace degenerative anterolisthesis of C5 on C6, unchanged with flexion and extension. Soft tissues: No prevertebral soft tissue swelling. IMPRESSION: 1. Advanced cervical spondylosis with impressive multilevel facet arthropathy. 2. There is some degree of abnormal motion noted on flexion and extension. Comment: Consider cervical spine MRI if clinically indicated based on symptomatology. Reviewed by: Stef Em MD on 07/14/2021 5:15 PM PDT Approved by: Stef Em MD on 07/14/2021 5:15 PM PDT Station ID: [id number]
== END 2021-07-14 08:48 | disposition home or self-care (01) ==
LOC: DI 08:47
PROVIDERS: ATTEND Neurological Surgery
DX: M48.02 Spinal stenosis, cervical region (principal); M47.812 Spondylosis without myelopathy or radiculopathy, cervical region; M43.12 Spondylolisthesis, cervical region

== ENCOUNTER 2021-07-30 13:36 | Outpatient (CLI) | payer MEDICARE, OTHER ==
--- NOTE | 2021-08-01 08:57 | MRI Report ---
PROCEDURE: Cervical Spine W/O INDICATIONS: CERVICAL STENOSIS TECHNIQUE: Noncontrast sagittal T1 spin echo and T2 fast spin echo, sagittal STIR, foraminal oblique sagittal T2 fast spin echo, and axial gradient echo or T2 fast spin echo through the cervical spine. COMPARISON: Cervical spine plain films dated 07/14/2021, which demonstrate abnormal motion on flexion and extension.. FINDINGS: Image quality: Excellent. Alignment and Curvature: Trace degenerative anterolisthesis of C3 on C4, and of C5 on C6 and of C6 on C7, and of C7 on T1. There is posterior laminectomy at C3 and C4. Bone Marrow: Marrow demonstrates normal overall signal. Spinal Cord: There is indentation on the cord at C3-C4. There is vague signal abnormality cord at kenna t level consistent with myelomalacia. The cord is of otherwise unremarkable signal and caliber. No ce rebellar tonsillar herniation. Paraspinous Soft Tissues: No paravertebral masses. Prevertebral soft tissues are normal in thicknes s. C2-C3: No central canal stenosis. The combination of left uncovertebral joint hypertrophy and left f acet hypertrophy result in severe left foraminal narrowing with left foraminal C3 nerve root impingem ent. C3-C4: Large diffuse disc bulge indenting on the cord. Mild cord signal abnormality. Posterior deco mpressive laminectomy. There is residual moderate canal stenosis at the top of the disc space. Refere nce image 10/5000 (axial GRE sequence). Right uncovertebral joint hypertrophy, prominent facet hypertr ophy, and foraminal disc osteophyte complex results in severe right foraminal narrowing with impingem ent on the exiting right C4 nerve root. Left uncovertebral joint hypertrophy and prominent facet hype rtrophy result in severe left foraminal narrowing with left foraminal C4 nerve root impingement. C4-C5: No canal stenosis. Bilateral uncovertebral joint hypertrophy. Prominent left facet hypertroph y. Mild to moderate right foraminal narrowing with mild flattening deformity on the exiting right C5 nerve root. Severe left foraminal narrowing with left foraminal C5 nerve root impingement. C5-C6: Disc bulge. No canal stenosis. Bilateral facet hypertrophy, exuberant on the left. Bilateral uncovertebral joint hypertrophy. Mild right foraminal narrowing. Severe left foraminal narrowing with left foraminal C6 nerve root impingement. C6-C7: No canal stenosis. Mild to moderate right foraminal stenosis. C7-T1: No canal stenosis. Right uncovertebral joint hypertrophy and facet hypertrophy contribute to moderate to severe right foraminal narrowing with a degree of right foraminal C8 nerve root impingeme nt. IMPRESSION: 1. There is been previous decompressive laminectomy at C3-C4. A large diffuse disc bulge is present, with residual moderate canal stenosis at the superior aspect of the disc space. There is some vague c ord signal abnormality consistent with myelomalacia. 2. Significant multilevel cervical facet arthropathy. 3. Significant multilevel foraminal narrowing as described above, with multilevel foraminal nerve molina t impingement. There is severe bilateral foraminal narrowing at C3-C4. There is severe left foraminal narrowing at C4-C5. There is severe left foraminal narrowing at C5-C6. There is moderate to severe r ight foraminal narrowing at C7-T1. Reviewed by: Stef Em MD on 08/01/2021 8:56 AM PDT Approved by: Stfe Em MD on 08/01/2021 8:56 AM PDT Station ID: [id number]
== END 2021-07-30 13:37 | disposition home or self-care (01) ==
LOC: DI 13:36
PROVIDERS: ATTEND Neurological Surgery
DX: M48.02 Spinal stenosis, cervical region (principal); M47.812 Spondylosis without myelopathy or radiculopathy, cervical region; M48.03 Spinal stenosis, cervicothoracic region

== ENCOUNTER 2021-09-08 18:54 | Emergency (ER) | payer MEDICARE, OTHER ==
--- NOTE | 2021-09-08 21:43 | ED Physician Documentation ---
History of Present Illness - Stated complaint Stated Complaint: ABNORMAL LABS - Chief complaint Chief Complaint: General - History obtained from History obtained from: Patient - History of Present Illness Timing: Other (several weeks) Pain level max: 6 Pain level now: 5 - Additonal information Additional information: Patient is an 86-year-old male who went to the walk-in clinic today for left shoulder and left upper arm pain. Worse with movement, better with rest. He states he had a recent neck surgery to relieve chronic pain in his arms, still has some numbness and tingling to the hands. He has a history of a biceps tendon tear in the left upper arm as well. He has not had any chest pain or shortness of breath. No dizziness or lightheadedness. He states that the walk- in clinic today troponin and told him that his troponin was elevated and to come here for evaluation. Patient currently asymptomatic. The left shoulder hurts more when he is putting pressure on it from using his walker. Review of Systems Ten Systems: 10 systems reviewed and negative Constitutional: denies: Fever, Chills Ears: denies: Ear pain Nose: denies: Rhinorrhea / runny nose, Congestion Cardiac: denies: Palpitations Respiratory: denies: Dyspnea, Cough, Wheezing GI: denies: Abdominal Pain, Vomiting, Diarrhea Skin: denies: Rash Musculoskeletal: denies: Neck pain, Back pain Neurologic: denies: Headache PD PAST MEDICAL HISTORY - Past Medical History Past Medical History: Yes Cardiovascular: Hypertension, Arrhythmia Endocrine/Autoimmune: None GI: Colon polyps : Benign prostate hypertrophy, Retention, Frequency HEENT: Chronic sinusitis Psych: None Musculoskeletal: Osteoarthritis, Fibromyalgia, Other Derm: None - Past Surgical History General: Cholecystectomy, Colonoscopy Ortho: Knee replacement HEENT: Other - Present Medications Home Medications: Ambulatory Orders Medication Instructions Recorded Confirmed Ascorbic Acid [Vitamin C] 1,000 mg PO DAILY 03/01/13 05/02/14 Aspirin Chewable [St Manav 81 mg PO DAILY 03/01/13 05/01/14 Aspirin] Atorvastatin Calcium 10 mg ORAL DAILY 03/01/13 05/01/14 Calcium Carbonate/Vitamin D3 1 each PO DAILY 03/01/13 05/01/14 [Calcium 600 + D3 Softgel] Cholecalciferol (Vitamin D3) 2,000 unit PO DAILY 03/01/13 05/01/14 [Vitamin D3] Clopidogrel [Plavix] 75 mg PO DAILY 03/01/13 05/01/14 Cranberry Conc/Ascorbic Acid 1 each PO DAILY 03/01/13 05/01/14 [Cranberry 12,600 mg Softgel] Finasteride 5 mg ORAL DAILY 03/01/13 05/02/14 Gabapentin [Neurontin] 300 mg PO HS 03/01/13 05/01/14 Glucosa Engle 2Kcl/Chondroitin Engle 1 each PO DAILY 03/01/13 05/01/14 [Glucosamine & Chondroitin Cap] Lisinopril 10 mg ORAL DAILY 03/01/13 05/01/14 Metoprolol Succinate [Toprol Xl] 25 mg PO DAILY 03/01/13 05/02/14 Multivitamin [Multivitamins] 1 each PO DAILY 03/01/13 05/02/14 Potassium 99 mg PO DAILY 03/01/13 05/02/14 Tamsulosin [Flomax] 0.4 mg PO DAILY 03/01/13 05/02/14 Vitamin E 400 unit PO DAILY 03/01/13 05/02/14 predniSONE [Prednisone] 5 mg ORAL DAILY 05/01/14 05/02/14 Gabapentin [Neurontin] 300 mg PO TID #30 cap 04/18/21 - Allergies Allergies/Adverse Reactions: Allergies Allergy/AdvReac Type Severity Reaction Status Date / Time doxycycline AdvReac Rash Verified 09/08/21 19:01 ibuprofen AdvReac Rash Verified 09/08/21 19:01 Penicillins AdvReac Rash Verified 09/08/21 19:01 Sulfa (Sulfonamide AdvReac Rash Verified 09/08/21 19:01 Antibiotics) - Social History Does the pt smoke?: No Smoking Status: Never smoker PD ED PE NORMAL - Vitals Vital signs reviewed: Yes - General General: Alert and oriented X 3, No acute distress, Well developed/nourished - HEENT HEENT: PERRL, Moist mucous membranes - Neck Neck: Supple, no meningeal sign, No bony TTP - Cardiac Cardiac: RRR, Strong equal pulses - Respiratory Respiratory: No respiratory distress, Clear bilaterally - Abdomen Abdomen: Soft, Non tender, Non distended - Back Back: No spinal TTP - Derm Derm: Warm and dry, No rash - Extremities Extremities: No edema, Other (Pain with internal rotation of the left shoulder the pain is near the rotator cuff, anterior aspect. Also has some tenderness along the rotator cuff itself. Neurovascular intact. Otherwise normal examination of the left upper extremity, neck and back.) - Neuro Neuro: Alert and oriented X 3 - Psych Psych: Normal mood, Normal affect Results - Vitals Vitals: Vital Signs - 24 hr 09/08/21 09/08/21 09/08/21 19:03 21:27 21:49 Temperature 36.6 C 36.6 C Heart Rate 98 89 88 Respiratory 16 16 16 Rate Blood Pressure 180/80 H 169/79 H 166/75 H O2 Saturation 99 98 98 Oxygen O2 Source Room air - EKG (time done) 2133 Rate: Rate (enter#) (75) Rhythm: NSR, Other (PVC) Intervals: LBBB - Labs Labs: Laboratory Tests 09/08/21 19:28 Troponin I High Sens 26.8 H* PD MEDICAL DECISION MAKING - ED course Complexity details: reviewed results, re-evaluated patient, considered differential (No ST elevation PR, no aortic dissection, no PE, no tension pneumothorax, no aortic aneurysm), d/w patient ED course: Patient with what appears to be tendinitis of the left shoulder, rotator cuff area. Encouraged continued stretching. He has pain medication for home. No evidence of acute coronary syndrome. No chest pain. No shortness of breath. Minimal high-sensitivity troponin elevation, no significant change since his draw earlier today. EKG shows a stable left bundle branch block. No evidence of pulmonary embolus, aortic dissection. Patient counseled regarding signs and symptoms for which I believe and urgent re-evaluation would be necessary. Patient with good understanding of and agreement to plan and is comfortable going home at this time This document was made in part using voice recognition software. While efforts are made to proofread this document, sound alike and grammatical errors may occur. Departure - Departure Disposition: Home, Self Care Clinical Impression: Rotator cuff tendonitis Qualifiers: Laterality: left Qualified Code(s): M75.82 - Other shoulder lesions, left shoulder Condition: Good Instructions: ED Tendinitis Rotator Cuff Follow-Up: Leslie Vernon ARNP [Primary Care Provider] - Within 1 week Comments: Please follow-up with your doctor for further care. Please continue to stretch your shoulder gently as this will help to alleviate the pain in the rotator cuff. Continue your current medications at home. Return if you worsen. If you have not had a recent cardiac stress test, your doctor may want to order one for you, please discuss this week with your doctor. Discharge Date/Time: 09/08/21 21:49
[2021-09-08 21:50] VITALS: BP 166/75
== END 2021-09-08 21:49 | disposition home or self-care (01) ==
LOC: ED 18:54
DX: M75.82 Other shoulder lesions, left shoulder (principal); R07.89 Other chest pain
CPT/HCPCS: 36415; 80048; 84484; 93005; 99282; 99283

== ENCOUNTER 2021-09-11 18:23 | Outpatient (CLI) | payer MEDICARE, OTHER ==
--- NOTE | 2021-09-11 19:26 | XRAY Report ---
PROCEDURE: Cervical Spine Complete INDICATIONS: S/P CERVICAL SPINAL FUSION TECHNIQUE: 4 views of the cervical spine acquired. COMPARISON: None. FINDINGS: Bones: No fractures or dislocations to the C7-T1 level. There is 3 mm anterolisthesis of C2 on C3, 4 mm anterolisthesis of C3 on C4. Degenerative disc disease and bilateral facet hypertrophic changes a re noted throughout cervical spine. Abnormal motion is seen at C3-4 level on lateral flexion and exte nsion views. Decreased range of motion is also seen. Soft tissues: No prevertebral soft tissue swelling. IMPRESSION: 1. Grade 1 anterolisthesis of C2 on C3 and C3 on C4. Abnormal motion is noted at C3-4 level on latera l flexion and extension views. 2. Degenerative disc disease throughout cervical spine. No acute cervical spine fracture or dislocati on. Decreased range of motion on lateral flexion and extension views. Reviewed by: Jeff Steven MD on 09/11/2021 7:24 PM PDT Approved by: Jeff Steven MD on 09/11/2021 7:24 PM PDT Station ID: [id number]
== END 2021-09-11 18:24 | disposition home or self-care (01) ==
LOC: DI 18:23
PROVIDERS: ATTEND Nurse Practitioner Family
DX: M43.12 Spondylolisthesis, cervical region (principal); M47.812 Spondylosis without myelopathy or radiculopathy, cervical region; Z98.1 Arthrodesis status

== ENCOUNTER 2022-02-08 11:01 | Emergency (ER) | payer MEDICARE, OTHER ==
[2022-02-08 12:14] LABS: B. PARAPERTUSSIS- RESP PCR PAN NOT DETECTED; B. PERTUSSIS- RESP PCR PANEL NOT DETECTED; C. PNEUMONIAE- RESP PCR PANEL NOT DETECTED; CORONAVIRUS 229E-RESP PCR NOT DETECTED; CORONAVIRUS HKU1-RESP PCR NOT DETECTED; CORONAVIRUS NL63-RESP PCR NOT DETECTED; CORONAVIRUS OC43-RESP PCR NOT DETECTED; HUMAN METAPNEUMOVIRUS NOT DETECTED; INFLUENZA A- RESP PCR PANEL NOT DETECTED; INFLUENZA B - RESP PCR PANEL NOT DETECTED; M. PNEUMONIAE- RESP PCR PANEL NOT DETECTED; PARAINFLUENZA VIRUS 1 NOT DETECTED; PARAINFLUENZA VIRUS 2 NOT DETECTED; PARAINFLUENZA VIRUS 3 NOT DETECTED; PARAINFLUENZA VIRUS 4 NOT DETECTED; RHINOVIRUS/ENTEROVIRUS NOT DETECTED; RSV- RESP PCR PANEL NOT DETECTED
[2022-02-08 12:15] LABS: SARS-CoV-2 -RESP PCR PANEL DETECTED
[2022-02-08 13:07] VITALS: BP 177/86
--- NOTE | 2022-02-08 13:08 | ED Physician Documentation ---
PD HPI URI - Stated complaint Stated Complaint: COUGH - Chief complaint Chief Complaint: Resp - History obtained from History obtained from: Patient - History of Present Illness Timing - onset: How many days ago (2) Timing duration: Days (2) Timing details: Gradual onset, Still present Associated symptoms: Sweats, Nasal congestion, Rhinorrhea, Dry cough Contributing factors: Sick contact ( in senior care has contracted COVID) Improves by: Rest, Medication (tylenol) Similar symptoms before: Has not had sx before Recently seen: Not recently seen - Additional information Additional information: 86-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 He is immunized and boosted and the majority of his symptoms are nasal congestion and a dry cough. He is not dyspneic and he has not had a fever. He is not coughing anything up. Review of Systems Constitutional: reports: Fatigue, Sweats. denies: Fever Eyes: denies: Photophobia Ears: denies: Drainage/discharge Nose: reports: Rhinorrhea / runny nose, Congestion Throat: denies: Sore throat Cardiac: denies: Chest pain / pressure, Palpitations Respiratory: reports: Cough. denies: Dyspnea, Wheezing GI: denies: Abdominal Pain, Nausea, Vomiting, Constipation, Diarrhea PD PAST MEDICAL HISTORY - Past Medical History Cardiovascular: Hypertension, Arrhythmia Endocrine/Autoimmune: None GI: Colon polyps : Benign prostate hypertrophy, Retention, Frequency HEENT: Chronic sinusitis Psych: None Musculoskeletal: Osteoarthritis, Fibromyalgia, Other Derm: None - Past Surgical History General: Cholecystectomy, Colonoscopy Ortho: Knee replacement HEENT: Other - Present Medications Home Medications: Ambulatory Orders Medication Instructions Recorded Confirmed Ascorbic Acid [Vitamin C] 1,000 mg PO DAILY 03/01/13 05/02/14 Aspirin Chewable [St Manav 81 mg PO DAILY 03/01/13 05/01/14 Aspirin] Atorvastatin Calcium 10 mg ORAL DAILY 03/01/13 05/01/14 Calcium Carbonate/Vitamin D3 1 each PO DAILY 03/01/13 05/01/14 [Calcium 600 + D3 Softgel] Cholecalciferol (Vitamin D3) 2,000 unit PO DAILY 03/01/13 05/01/14 [Vitamin D3] Clopidogrel [Plavix] 75 mg PO DAILY 03/01/13 05/01/14 Cranberry Conc/Ascorbic Acid 1 each PO DAILY 03/01/13 05/01/14 [Cranberry 12,600 mg Softgel] Finasteride 5 mg ORAL DAILY 03/01/13 05/02/14 Gabapentin [Neurontin] 300 mg PO HS 03/01/13 05/01/14 Glucosa Engle 2Kcl/Chondroitin Engle 1 each PO DAILY 03/01/13 05/01/14 [Glucosamine & Chondroitin Cap] Lisinopril 10 mg ORAL DAILY 03/01/13 05/01/14 Metoprolol Succinate [Toprol Xl] 25 mg PO DAILY 03/01/13 05/02/14 Multivitamin [Multivitamins] 1 each PO DAILY 03/01/13 05/02/14 Potassium 99 mg PO DAILY 03/01/13 05/02/14 Tamsulosin [Flomax] 0.4 mg PO DAILY 03/01/13 05/02/14 Vitamin E 400 unit PO DAILY 03/01/13 05/02/14 predniSONE [Prednisone] 5 mg ORAL DAILY 05/01/14 05/02/14 Gabapentin [Neurontin] 300 mg PO TID #30 cap 04/18/21 - Allergies Allergies/Adverse Reactions: Allergies Allergy/AdvReac Type Severity Reaction Status Date / Time doxycycline AdvReac Rash Verified 02/08/22 11:11 ibuprofen AdvReac Rash Verified 02/08/22 11:11 Penicillins AdvReac Rash Verified 02/08/22 11:11 Sulfa (Sulfonamide AdvReac Rash Verified 02/08/22 11:11 Antibiotics) - Social History Does the pt smoke?: No Smoking Status: Never smoker PD ED PE NORMAL - Vitals Vital signs reviewed: Yes (Hypertensive) - General General: Alert and oriented X 3, No acute distress, Well developed/nourished - HEENT HEENT: Atraumatic, PERRL, EOMI - Neck Neck: Supple, no meningeal sign, No bony TTP - Cardiac Cardiac: RRR, No murmur - Respiratory Respiratory: No respiratory distress, Clear bilaterally - Abdomen Abdomen: Soft, Non tender - Back Back: No CVA TTP, No spinal TTP - Derm Derm: Normal color, Warm and dry, No rash - Extremities Extremities: No deformity, No edema - Neuro Neuro: Alert and oriented X 3, 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 parapertussis DNA (PCR) NOT DETECTED Nasal Coronavir 229E PCR NOT DETECTED Nasal Coronavir HKU1 PCR NOT DETECTED Nasal Coronavir NL63 PCR NOT DETECTED Nasal Coronavir OC43 PCR NOT DETECTED Nasal Enterovir/Rhinovir PCR NOT DETECTED Nasal Influenza B PCR NOT DETECTED Nasal Influenza A PCR NOT DETECTED Nasal Parainfluen 1 PCR NOT DETECTED Nasal Parainfluen 2 PCR NOT DETECTED Nasal Parainfluen 3 PCR NOT DETECTED Nasal Parainfluen 4 PCR NOT DETECTED Nasal RSV (PCR) NOT DETECTED Nasal B.pertussis DNA PCR NOT DETECTED Nasal C.pneumoniae (PCR) NOT DETECTED Konstantin Human Metapneumo PCR NOT DETECTED Nasal M.pneumoniae (PCR) NOT DETECTED Nasal SARS-CoV-2 (PCR) DETECTED A PD Medical Decision Making - ED course Complexity details: considered differential, d/w patient Reviewed Lab Results: A nasal PCR is obtained for multiple viruses all of which are negative with the exception of COVID. The patient is diagnosed with COVID based on the PCR test. ED course: 86-year-old male immunized and boosted has contacted COVID and appears to have mild symptoms. No evidence of pneumonia on physical examination, no fever. He has some medication in interactions with Paxil bid and he is alternatively prescribed Molnupiravir. Departure - Departure Disposition: 01 Home, Self Care Clinical Impression: COVID-19 Condition: Stable Instructions: COVID-19 [facility] Department of Health, Flu and Cold: Nutrition, Prevention and Treatment Tips Comments: Andrew, today it looks like you have COVID. You are not coughing up any phlegm and you are not short of breath. We are expecting you to do well as you are immunized and boosted. We have dispensed some medication (molnupiravir) that may help reduce the time of illness and will not interfere with your other medications. Additional fluids and tylenol are recommended. Discharge Date/Time: 02/08/22 13:27
[2022-02-08] MEDS ORDERED: MOLNUPIRAVIR PREPACK PO STA (13:14)
== END 2022-02-08 13:27 | disposition home or self-care (01) ==
LOC: ED 11:01
DX: U07.1 COVID-19 (principal); I10 Essential (primary) hypertension
CPT/HCPCS: 87633; 99282; 99283; J3490

== ENCOUNTER 2022-08-13 13:21 | Outpatient (CLI) | payer MEDICARE, OTHER ==
[2022-08-13 18:13] LABS: CALCIUM 9.3 mg/dL (8.5-10.3); CREATININE 1.4 mg/dL (0.6-1.2); POTASSIUM 4.4 mmol/L (3.5-5.0)
== END 2022-08-13 13:22 | disposition home or self-care (01) ==
LOC: LAB.N 13:21
PROVIDERS: ATTEND Family Medicine
DX: I12.9 Hypertensive chronic kidney disease with stage 1 through stage 4 chronic kidney disease, or unspecified chronic kidney disease (principal); N18.9 Chronic kidney disease, unspecified; M35.3 Polymyalgia rheumatica
CPT/HCPCS: 36415; 80048; 85651